=== PATIENT | female | born 1990 | race African-American/Black ===

== ENCOUNTER 2018-04-28 09:02 | Emergency (ER) | payer OTHER ==
[2018-04-28] MEDS: ONDANSETRON 4 MG ORAL DISINTEGRATING TAB (Q0162 PER 1MG) PO (09:27)
[2018-04-28] MEDS: KETOROLAC TROMETHAMINE 10 MG TAB PO (09:27)
== END 2018-04-28 10:24 | disposition home or self-care (01) ==
LOC: M ED 09:02
DX: G43.909 Migraine, unspecified, not intractable, without status migrainosus (principal)
CPT/HCPCS: Q0162

== ENCOUNTER → 2018-08-16 | Outpatient (CLI) | payer OTHER ==
[~2018-08-16] MED LIST: CONRAY-43 43% 50ML VIAL (Q9960) As Ordered ONE; KETO10TAB PO; PROHANCE 279.3MG/ML 5ML VIAL (A9576) As Ordered ONE; ZOFR4TAB14 PO
--- NOTE | 2018-08-16 10:43 | REP ---
MR ARTHROGRAM, RIGHT HIP: TECHNIQUE: Coronal T1, STIR through the pelvis, post arthrogram axial T1 fat sat, T2 fat sat, coronal T1 fat sat, T2 fat sat, sagittal T1 fat sat, axial oblique T1 fat sat right hip. Visualized osseous structures demonstrate no bone marrow edema or occult fracture. There is no evidence of avascular necrosis. There does appear to be a tear of the anterior superior right hip labrum. Small paralabral cyst. Mild ill-defined high signal is seen along the greater trochanters bilaterally suggesting mild bilateral greater trochanteric tendinobursitis. There are a few tiny subchondral cysts in the posterior right acetabulum. Within the visualized portions of the pelvis, note is made of a right uterine fibroid 1.9 cm in diameter. There is also a small right ovarian cyst 2.5 cm in diameter. There is mild free fluid in the pelvis. IMPRESSION: There is a tear of the anterior superior aspect of the right hip labrum. There are findings compatible with mild bilateral greater trochanteric tendinobursitis. A few tiny subchondral cysts are seen in the posterior right acetabulum. There is no occult fracture or avascular necrosis. Within the pelvis, a right uterine fibroid measures 1.9 cm in diameter. There is a small right ovarian cyst 2.5 cm in diameter. There is a mild amount of free fluid in the pelvis. Electronically Signed by Eh Napier MD 08/16/2018 12:24 P
--- NOTE | 2018-08-17 10:17 | REP ---
Right hip arthrogram The procedure was performed under the direction supervision of Dr. Napier. The benefits and risks including but not limited to pain, infection, bleeding and anaphylaxis were explained to the patient and informed consent was obtained. The right femoral neck was localized using fluoroscopic guidance. Skin was prepped and draped in a sterile fashion. 1% lidocaine was used as a local anesthetic. Using fluoroscopic guidance a 22 gauge spinal needle was inserted and advanced to the femoral neck. 0.5 ml of Conray 43 was injected to verify placement. 11 ml of a solution containing 20 ml of sterile saline and 0.15 ml of ProHance was injected into the joint. The needle was removed and the patient was taken to MRI for postprocedural imaging. The patient tolerated the procedure well and there were no immediate complications. Less than 6 seconds of fluoro time was utilized for this procedure. Reviewed by ANTIONETTE Smith 08/16/2018 03:00 P Electronically Signed by Eh Napier MD 08/17/2018 10:09 A
== END ==
LOC: M RADPRO 06:31
PROVIDERS: ATTEND Orthopaedic Surgery
DX: M24.151 Other articular cartilage disorders, right hip (principal)
CPT/HCPCS: 27093; 73723; 77002; A9576; Q9960

== ENCOUNTER → 2018-08-22 | Outpatient (CLI) | payer OTHER ==
[~2018-08-22] MED LIST changes: +LIDOCAINE 1% MDV 20ML VIAL As Ordered ONE; -PROHANCE 279.3MG/ML 5ML VIAL (A9576) As Ordered ONE; +TRIAMCINOLONE ACETONIDE SUSP 40 MG/ML VIAL (J3301) As Ordered ONE
--- NOTE | 2018-08-22 20:37 | REP ---
Right hip injection The procedure was performed under the direct supervision of Dr. Seth. The benefits and risks including but not limited to pain infection and bleeding and anaphylaxis were explained to the patient and informed consent was obtained. The left femoral neck was localized using fluoroscopic guidance. The skin was prepped and draped in a sterile fashion. 1% lidocaine was used as a local anesthetic. Using fluoroscopic guidance a 22-gauge spinal needle was inserted and advanced to the femoral neck. 0.5 ml of Conray 43 was injected to verify placement. 10 ml of a solution containing 9 ml of 1% Xylocaine and 1 ml of Kenalog 40 mg was injected. The needle was then removed. The patient tolerated the procedure well and there were no immediate complications. Less than 6 seconds of fluoro time was utilized for this procedure. Reviewed by ANTIONETTE Smith 08/22/2018 02:32 P Electronically Signed by Willy Seth MD 08/22/2018 08:28 P
== END ==
LOC: M RADPRO 10:08
PROVIDERS: ATTEND Orthopaedic Surgery
DX: M25.551 Pain in right hip (principal)
CPT/HCPCS: 20610; 77002; J3301; Q9960

== ENCOUNTER 2019-06-05 09:28 | Emergency (ER) | payer OTHER ==
[~2019-06-05] VITALS: Ht 172.7 cm; Wt 72.7 kg
[~2019-06-05 09:28] MED LIST changes: -CONRAY-43 43% 50ML VIAL (Q9960) As Ordered ONE; -LIDOCAINE 1% MDV 20ML VIAL As Ordered ONE; -TRIAMCINOLONE ACETONIDE SUSP 40 MG/ML VIAL (J3301) As Ordered ONE
[2019-06-05] MEDS ORDERED: RIZA5TAB52 (09:39)
[2019-06-05] MEDS ORDERED: LOES1TAB7 (09:39)
--- NOTE | 2019-06-05 11:51 | REP ---
CT brain: 06/05/2019. Indication: Headache. Comparison: None. Technique: Unenhanced axial CT images of the brain were obtained from skull base to vertex. Findings: There is no acute intracranial hemorrhage, acute cortical infarction, mass effect, hydrocephalus or significant fluid within the visualized paranasal sinuses/mastoid air cells. Impression: No acute intracranial process. Electronically Signed by Max Sweeney DO 06/05/2019 11:43 A
[2019-06-05 12:42] VITALS: BP 112/70
[2019-06-05] MEDS ORDERED: IBUP80TA PO (12:45)
[2019-06-05] MEDS ORDERED: FLON1SPR NARES (12:45)
== END 2019-06-05 13:01 | disposition home or self-care (01) ==
LOC: M ED 09:28
DX: G43.909 Migraine, unspecified, not intractable, without status migrainosus (principal); J01.90 Acute sinusitis, unspecified; Z79.1 Long term (current) use of non-steroidal anti-inflammatories (NSAID); Z79.899 Other long term (current) drug therapy